=== PATIENT | male | born 1970 | race Caucasian/White ===

== ENCOUNTER → 2017-05-22 | Outpatient (CLI) | payer OTHER ==
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
--- NOTE | 2017-05-22 10:38 | XR ---
EXAMINATION TYPE: XR cervical spine comp DATE OF EXAM: 05/22/2017 TECHNIQUE: Frontal, lateral, oblique, swimmers, and open mouth view of the cervical spine are obtaine d. HISTORY: M54.2 cervicalgia COMPARISON: None FINDINGS: The cervical spine is visualized in its entirety from C1 thru the top of T1 level, it is s atisfactory in alignment without evidence of acute fracture or dislocation. The pre-vertebral soft t issue appears within normal limits. The C1-C2 articulation is within normal limits on the open mouth view. Degenerative disc disease is seen at C4-C5 and C5-C6 demonstrated as intervertebral disc space narrow ing, endplate sclerosis and small osteophytes. Mild uncovertebral hypertrophy is also present at this level mildly narrowing the left neural foramina at C5-C6. Neural foraminal at C6-C7 and and C7-T1 ar e limited due to incomplete patient rotation. IMPRESSION: 1. No acute fracture or dislocation is seen in the cervical spine. 2. Mild degenerative disc disease at C4-C6 resulting in radiographic mild neural foraminal narrowing at C5-C6 on the left.
== END ==
LOC: RADXRMAIN 10:04
PROVIDERS: ATTEND Physician Assistant
DX: M99.71 Connective tissue and disc stenosis of intervertebral foramina of cervical region (principal); M50.321 Other cervical disc degeneration at C4-C5 level; M46.87 Other specified inflammatory spondylopathies, lumbosacral region
CPT/HCPCS: 72050; 72100; 85027

== ENCOUNTER 2021-08-06 15:58 | Emergency (ER) | payer BC, OTHER ==
[2021-08-06 18:37] VITALS: BP 122/74; PULSE 78; RESP 16; TEMP 99.3
[2021-08-06] MEDS ORDERED: SODIUM CHLORIDE 0.9% 50 ML IVPB ONE (18:45)
[2021-08-06] MEDS ORDERED: CASIRIVIMAB (REGN10933) (EUA) 600 MG, IMDEVIMAB (REGN10987) (EUA) 600 MG in SODIUM CHLO... IVPB ONE (18:45)
--- NOTE | 2021-08-06 19:09 | ED ---
General Adult HPI - General Chief complaint: Recheck/Abnormal Lab/Rx Stated complaint: Covid+, BAM Therapy Time Seen by Provider: 08/06/21 18:16 Source: patient, RN notes reviewed Mode of arrival: ambulatory Limitations: no limitations - History of Present Illness Initial comments: This is a 51-year-old male who states over last several days she's had cough some headache rhinorrhea no overt shortness of breath. Associated fever. Body aches. He did a home Covid Test today and it was positive. No other current complaints modifying factors no overt chest pain at this time. No other symptoms reported - Related Data Allergies Allergy/AdvReac Type Severity Reaction Status Date / Time No Known Allergies Allergy Verified 08/06/21 17:46 Review of Systems ROS Statement: Those systems with pertinent positive or pertinent negative responses have been documented in the HPI. ROS Other: All systems not noted in ROS Statement are negative. Past Medical History Past Medical History: No Reported History History of Any Multi-Drug Resistant Organisms: None Reported Past Surgical History: No Surgical Hx Reported Past Psychological History: No Psychological Hx Reported Smoking Status: Never smoker Past Alcohol Use History: Occasional Past Drug Use History: None Reported General Exam - General Exam Comments Initial Comments: This is a well-developed well-nourished awake alert oriented times 3 male Limitations: no limitations General appearance: alert, in no apparent distress Head exam: Present: atraumatic, normocephalic, normal inspection Eye exam: Present: normal appearance, PERRL, EOMI. Absent: scleral icterus, conjunctival injection, periorbital swelling ENT exam: Present: mucous membranes moist, other (Boggy nasal mucosa) Neck exam: Present: normal inspection, full ROM, other (No stridor JVD or bruits). Absent: tenderness, meningismus, lymphadenopathy Respiratory exam: Present: normal lung sounds bilaterally. Absent: respiratory distress, wheezes, rales, rhonchi, stridor Cardiovascular Exam: Present: regular rate, normal rhythm, normal heart sounds. Absent: systolic murmur, diastolic murmur, rubs, gallop, clicks GI/Abdominal exam: Present: soft, normal bowel sounds. Absent: distended, tenderness, guarding, rebound, rigid Extremities exam: Present: normal inspection, full ROM, normal capillary refill. Absent: tenderness, pedal edema, joint swelling, calf tenderness Back exam: Present: normal inspection Neurological exam: Present: alert, oriented X3, CN II-XII intact Psychiatric exam: Present: normal affect, normal mood Skin exam: Present: warm, dry, intact, normal color. Absent: rash Course Vital Signs 08/06/21 08/06/21 17:47 18:37 Temperature 98.9 F 99.3 F Pulse Rate 80 78 Respiratory 20 16 Rate Blood Pressure 105/73 122/74 O2 Sat by Pulse 97 96 Oximetry Medical Decision Making - Medical Decision Making I did discuss the findings with the patient he is a candidate for antibody. He has agreed to accept that he will get the antibody infusion and be discharged we did discuss post care. Disposition Clinical Impression: COVID-19, Viral syndrome Disposition: HOME SELF-CARE Condition: Good Instructions (If sedation given, give patient instructions): Coronavirus Disease 2019 (COVID-19), Viral Syndrome (ED) Is patient prescribed a controlled substance at d/c from ED?: No Referrals: Jacques Lane MD [Primary Care Provider] - 1-2 days
== END 2021-08-06 20:09 | disposition home or self-care (01) ==
LOC: EC 15:58
DX: U07.1 COVID-19 (principal)
CPT/HCPCS: 96361 ×2; 99283 ×2; 96360; M0243; Q0243